=== PATIENT | female | born 1950 | race Caucasian/White ===

== ENCOUNTER 2021-11-24 11:11 | Emergency (ER) | payer OTHER ==
[~2021-11-24] VITALS: Ht 167.6 cm; Wt 63.6 kg
[2021-11-24] MEDS ORDERED: ACETAMINOPHEN 325 MG TABLET PO ONE (12:30)
[2021-11-24] MEDS ORDERED: CLOTRIMAZOLE 1% 15 GM CREAM TP ONE (16:15)
[2021-11-24 17:10] VITALS: BP 124/77
== END 2021-11-24 19:01 | disposition home or self-care (01) ==
LOC: EMS 11:13
DX: M17.11 Unilateral primary osteoarthritis, right knee (principal)
CPT/HCPCS: 99285; 73562-TC; Z7502; Z7610